=== PATIENT | female | born 1950 | race Caucasian/White ===

== ENCOUNTER → 2016-11-24 | Outpatient (CLI) | payer MEDICARE, OTHER | END | disposition home or self-care (01) | LOC: CFH 08:12 | PROVIDERS: ATTEND Family Medicine | DX: Z12.31 Encounter for screening mammogram for malignant neoplasm of breast (principal); Z13.820 Encounter for screening for osteoporosis; N95.9 Unspecified menopausal and perimenopausal disorder | CPT/HCPCS: 77080; G0202 ==

== ENCOUNTER → 2018-02-08 | Outpatient (CLI) | payer MEDICARE, OTHER | END | disposition home or self-care (01) | LOC: CFH 14:01 | PROVIDERS: ATTEND Family Medicine | DX: R92.1 Mammographic calcification found on diagnostic imaging of breast (principal) | CPT/HCPCS: 77065 ==

== ENCOUNTER → 2018-03-07 | Outpatient (CLI) | payer MEDICARE, OTHER ==
[~2018-03-07] MED LIST: LIDOCAINE 1%, 50ML ONE; SODIUM BICARBONATE 4.0%, 5ML ONE
== END | disposition home or self-care (01) ==
LOC: CFH 09:24
PROVIDERS: ATTEND Family Medicine
DX: D05.12 Intraductal carcinoma in situ of left breast (principal)
CPT/HCPCS: 19081; 77065; 88305; J3490

== ENCOUNTER → 2018-03-15 | Outpatient (CLI) | payer MEDICARE, OTHER ==
[~2018-03-15] MED LIST changes: +AMLO5TAB2 PO; +CHOL500045 PO; -LIDOCAINE 1%, 50ML ONE; -SODIUM BICARBONATE 4.0%, 5ML ONE; +VIT1CAPS10 PO; +VITA1TAB19 PO
== END | disposition home or self-care (01) ==
LOC: STAR 08:15
PROVIDERS: ATTEND Surgery
DX: Z01.818 Encounter for other preprocedural examination (principal); D05.12 Intraductal carcinoma in situ of left breast; I10 Essential (primary) hypertension; E78.5 Hyperlipidemia, unspecified
CPT/HCPCS: 93005

== ENCOUNTER 2018-03-19 08:02 | Day surgery (SDC) | payer MEDICARE, OTHER ==
[~2018-03-19] VITALS: Ht 165.1 cm; Wt 60.1 kg
[~2018-03-19 08:02] MED LIST changes: +BUPIVACAINE/PF 0.5% ONE; +EPINEPHRINE 1 MG/ML, 1ML ONE
[2018-03-19] MEDS ORDERED: LACTATED RINGERS 1,000 ML IV SCH (09:52)
[2018-03-19] MEDS ORDERED: LIDOCAINE-MPF 1%, 2ML INFIL ONE (10:00)
[2018-03-19] MEDS ORDERED: FENTANYL PF 100 MCG/2ML ONE ×2 (10:39→11:33)
[2018-03-19] MEDS ORDERED: ACETAMINOPHEN 325 MG TABLET PO PRN (11:00)
[2018-03-19] MEDS ORDERED: ONDANSETRON 2MG/ML, 2ML IV PRN (11:00)
[2018-03-19] MEDS ORDERED: ONDANSETRON ODT 8 MG PO PRN (11:00)
[2018-03-19] MEDS ORDERED: PROMETHAZINE 25 MG/ML, 1ML IV PRN (11:00)
[2018-03-19] MEDS ORDERED: MORPHINE SULFATE 4 MG/ML, 1ML IVPush PRN (11:00)
[2018-03-19] MEDS ORDERED: OXYcodone 5 MG/5 ML ORAL.SOL UDC PO PRN (11:00)
[2018-03-19] MEDS ORDERED: PROPOFOL 10 MG/ML, 20ML ONE (11:10)
[2018-03-19] MEDS ORDERED: CEFAZOLIN 1,000 MG ONE (11:10)
[2018-03-19] MEDS ORDERED: ONDANSETRON 2MG/ML, 2ML ONE (11:10)
[2018-03-19] MEDS ORDERED: DEXAMETHASONE 4 MG/ML, 1ML ONE (11:10)
[2018-03-19] MEDS ORDERED: MORPHINE SULFATE 4 MG/ML, 1ML ONE (11:29)
[2018-03-19] MEDS ORDERED: OXYcodone 5 MG/5 ML ORAL.SOL UDC ONE (11:30)
[2018-03-19] MEDS: FENTANYL PF 100 MCG/2ML IV PRN ×2 (11:35→11:42)
[2018-03-19] MEDS ORDERED: MIDAZOLAM 1 MG/ML, 2ML ONE (11:55)
[2018-03-19] MEDS ORDERED: MIDAZOLAM 1 MG/ML, 2ML IV PRN (12:00)
== END 2018-03-19 14:05 | disposition home or self-care (01) ==
LOC: SDC 08:02 → EDSTATUS 11:15 → OUT 14:05
PROVIDERS: ATTEND Surgery
DX: D05.12 Intraductal carcinoma in situ of left breast (principal); E78.5 Hyperlipidemia, unspecified; E78.00 Pure hypercholesterolemia, unspecified; G43.909 Migraine, unspecified, not intractable, without status migrainosus; I10 Essential (primary) hypertension; Z98.890 Other specified postprocedural states; Z90.710 Acquired absence of both cervix and uterus; Z72.89 Other problems related to lifestyle; Z88.0 Allergy status to penicillin; Z88.8 Allergy status to other drugs, medicaments and biological substances; Z79.899 Other long term (current) drug therapy
CPT/HCPCS: 19125; 19281; 88307; J0171; J0690; J1100; J2250; J2405; J2704; J3010; J3490

== ENCOUNTER → 2018-06-25 | Outpatient (CLI) | payer MEDICARE, OTHER ==
[~2018-06-25] MED LIST changes: -AMLO5TAB2 PO; +AMLO5TAB7 PO; -BUPIVACAINE/PF 0.5% ONE; -EPINEPHRINE 1 MG/ML, 1ML ONE
== END | disposition home or self-care (01) ==
LOC: EDSTATUS 06-15 12:46 → ROC 08:18
PROVIDERS: ATTEND Radiology Radiation Oncology
DX: Z08 Encounter for follow-up examination after completed treatment for malignant neoplasm (principal); D05.12 Intraductal carcinoma in situ of left breast
CPT/HCPCS: 99212; G0463

== ENCOUNTER → 2018-09-25 | Outpatient (CLI) | payer MEDICARE, OTHER ==
[~2018-09-25] MED LIST changes: +AMLO-150 PO; -AMLO5TAB7 PO
== END | disposition home or self-care (01) ==
LOC: CFH 09:57
PROVIDERS: ATTEND Surgery
DX: Z01.818 Encounter for other preprocedural examination (principal); D05.10 Intraductal carcinoma in situ of unspecified breast; R92.2 Inconclusive mammogram
CPT/HCPCS: 77065

== ENCOUNTER → 2018-12-04 | Outpatient (CLI) | payer MEDICARE, OTHER ==
[~2018-12-04] MED LIST changes: +OCUVITE SOFTGE1 EACH PO; -VIT1CAPS10 PO
== END | disposition home or self-care (01) ==
LOC: SMMGROBB 11-27 09:45 → EDSTATUS 11-27 10:15 → CFH 13:31 → EDSTATUS 14:00
PROVIDERS: ATTEND Family Medicine
DX: M81.8 Other osteoporosis without current pathological fracture (principal); Z88.0 Allergy status to penicillin
CPT/HCPCS: 77080

== ENCOUNTER 2019-01-25 07:40 | Outpatient (CLI) | payer MEDICARE, OTHER | END 2019-01-25 23:59 | disposition home or self-care (01) | LOC: ROC 07:40 | PROVIDERS: ATTEND Radiology Radiation Oncology | DX: D05.12 Intraductal carcinoma in situ of left breast (principal); Z79.899 Other long term (current) drug therapy | CPT/HCPCS: G0463 ==

== ENCOUNTER 2019-03-13 12:30 | Outpatient (CLI) | payer MEDICARE, OTHER | END 2019-03-13 23:59 | disposition home or self-care (01) | LOC: CFH 12:30 | PROVIDERS: ATTEND Surgery | DX: Z85.3 Personal history of malignant neoplasm of breast (principal) | CPT/HCPCS: 77066; G0279 ==

== ENCOUNTER 2020-03-10 12:28 | Outpatient (CLI) | payer MEDICARE, OTHER | END 2020-03-10 23:59 | disposition home or self-care (01) | LOC: CFH 12:28 | PROVIDERS: ATTEND Surgery | DX: N64.89 Other specified disorders of breast (principal); R23.4 Changes in skin texture; Z85.3 Personal history of malignant neoplasm of breast | CPT/HCPCS: 77066 ==

== ENCOUNTER → 2020-08-11 | Outpatient (CLI) | payer MEDICARE, OTHER | END | disposition home or self-care (01) | LOC: CFH 12:15 | PROVIDERS: ATTEND Internal Medicine Hematology & Oncology | DX: D05.12 Intraductal carcinoma in situ of left breast (principal); N64.4 Mastodynia | CPT/HCPCS: 76642; 77061; 77065; G0279 ==

== ENCOUNTER → 2021-02-16 | Outpatient (CLI) | payer MEDICARE, OTHER | END | disposition home or self-care (01) | LOC: CFH 10:09 | PROVIDERS: ATTEND Internal Medicine Hematology & Oncology | DX: D05.12 Intraductal carcinoma in situ of left breast (principal); M85.88 Other specified disorders of bone density and structure, other site | CPT/HCPCS: 77080 ==

== ENCOUNTER 2021-03-08 10:25 | Outpatient (CLI) | payer MEDICARE, OTHER ==
[2021-03-08] MEDS ORDERED: SUMA100T4 PO (10:52)
[2021-03-08] MEDS ORDERED: VENL37.58 PO (10:52)
[2021-03-08] MEDS ORDERED: ANAS1TAB49 PO (10:52)
== END 2021-03-08 23:59 | disposition home or self-care (01) ==
LOC: STAR 10:25
PROVIDERS: ATTEND Urology
DX: Z01.818 Encounter for other preprocedural examination (principal); N39.46 Mixed incontinence
CPT/HCPCS: 87086; 93005

== ENCOUNTER 2021-03-12 09:59 | Day surgery (SDC) | payer MEDICARE, OTHER ==
[~2021-03-12] VITALS: Ht 165.1 cm; Wt 60.3 kg
[~2021-03-12 09:59] MED LIST changes: +ANAS1TAB49 PO; +SUMA100T4 PO; +VENL37.58 PO
[2021-03-12 10:13] VITALS: BP 159/76
[2021-03-12] MEDS ORDERED: CHLORHEXIDINE 15 ML UDC PO ONE (10:30)
[2021-03-12] MEDS ORDERED: LACTATED RINGERS 1,000 ML IV SCH (11:00)
[2021-03-12] MEDS ORDERED: FENTANYL PF 250 MCG/5ML ONE (11:37)
[2021-03-12] MEDS ORDERED: MIDAZOLAM 1 MG/ML, 2ML ONE (11:37)
[2021-03-12] MEDS ORDERED: GENTAMICIN 80 MG/2 ML ONE (11:39)
[2021-03-12] MEDS ORDERED: VANCOMYCIN 500 MG ONE (11:39)
[2021-03-12] MEDS ORDERED: LIDOCAINE 1%, 20ML ONE ×2 (11:39→12:25)
[2021-03-12] MEDS ORDERED: BUPIVACAINE 0.25% ONE ×2 (11:39→12:25)
[2021-03-12] MEDS ORDERED: hydrALAzine 20 MG/ML, 1ML IV PRN (12:00)
[2021-03-12] MEDS ORDERED: HYDROmorphone 1 MG/ML, 1ML INJ IVPush PRN (12:00)
[2021-03-12] MEDS ORDERED: HALOPERIDOL 5 MG/ML IV PRN (12:00)
[2021-03-12] MEDS ORDERED: morphine SULFATE 10 MG/ML, 1ML IVPush PRN (12:00)
[2021-03-12] MEDS ORDERED: PROMETHAZINE 25 MG/ML, 1ML IVPush PRN (12:00)
[2021-03-12] MEDS ORDERED: ACETAMINOPHEN 325 MG TABLET PO PRN (12:00)
[2021-03-12] MEDS ORDERED: LABETALOL 5MG/ML, 20ML IV PRN (12:00)
[2021-03-12] MEDS ORDERED: MEPERIDINE/PF 25MG/0.5ML IVPush PRN (12:00)
[2021-03-12] MEDS ORDERED: BUPIVACAINE/PF 0.25% ONE (12:21)
[2021-03-12] MEDS ORDERED: ONDANSETRON 2MG/ML, 2ML ONE (12:25)
[2021-03-12] MEDS ORDERED: PROPOFOL 10 MG/ML, 20ML ONE (12:25)
[2021-03-12] MEDS ORDERED: EPINEPHRINE 1 MG/ML, 1ML ONE (12:25)
[2021-03-12] MEDS ORDERED: DEXAMETHASONE 4 MG/ML, 1ML ONE (12:25)
[2021-03-12] MEDS ORDERED: CEFAZOLIN 1,000 MG ONE (12:25)
[2021-03-12] MEDS ORDERED: BUPIVACAINE/PF 0.25% INFIL ONE (12:47)
[2021-03-12] MEDS ORDERED: NEOSPORIN OINT, 15GM ONE (13:14)
[2021-03-12] MEDS ORDERED: FENTANYL PF 100 MCG/2ML ONE (13:47)
[2021-03-12] MEDS: FENTANYL PF 100 MCG/2ML IV PRN ×4 (13:48→14:43)
[2021-03-12] MEDS: OXYcodone 5 MG/5 ML ORAL.SOL UDC PO PRN ×2 (14:12→14:37)
[2021-03-12] MEDS ORDERED: OXYcodone 5 MG/5 ML ORAL.SOL UDC ONE (14:36)
[2021-03-12] MEDS ORDERED: HYDROmorphone 2 MG/ML, 1ML ONE (15:59)
[2021-03-12] MEDS ORDERED: ONDANSETRON 2MG/ML, 2ML IVPush PRN (16:30)
== END 2021-03-12 17:10 | disposition home or self-care (01) ==
LOC: OUT 09:59
PROVIDERS: ATTEND Urology
DX: N39.46 Mixed incontinence (principal); N30.20 Other chronic cystitis without hematuria; N32.89 Other specified disorders of bladder; I10 Essential (primary) hypertension; G43.909 Migraine, unspecified, not intractable, without status migrainosus; Z79.899 Other long term (current) drug therapy; Z87.440 Personal history of urinary (tract) infections; Z88.0 Allergy status to penicillin
CPT/HCPCS: 52204; 57288; 88305; C1771; J0690; J1100; J1170; J1580; J2250; J2405; J2704; J3010; J3370; J7120; J0171